=== PATIENT | male | born 1970 | race African-American/Black ===

== ENCOUNTER 2018-09-20 14:01 | Emergency (ER) | payer BC, OTHER ==
[~2018-09-20] VITALS: Ht 172.7 cm; Wt 90.7 kg
[2018-09-20] MEDS ORDERED: NORVASC10 MG PO (15:01)
[2018-09-20] MEDS ORDERED: FLEXERIL PO (15:43)
[2018-09-20] MEDS ORDERED: VOLTAREN GEL 1100 G2 TOP (15:43)
[2018-09-20] MEDS ORDERED: NAPROSYN500 MG PO (15:43)
[2018-09-20 16:16] VITALS: BP 143/94
== END 2018-09-20 16:17 | disposition home or self-care (01) ==
LOC: ER 14:01
DX: S13.4XXA Sprain of ligaments of cervical spine, initial encounter (principal); S39.012A Strain of muscle, fascia and tendon of lower back, initial encounter; S80.01XA Contusion of right knee, initial encounter; R93.0 Abnormal findings on diagnostic imaging of skull and head, not elsewhere classified; V89.2XXA Person injured in unspecified motor-vehicle accident, traffic, initial encounter; Y93.89 Activity, other specified; Y92.89 Other specified places as the place of occurrence of the external cause; Y99.8 Other external cause status